=== PATIENT | male | born 1975 | race Caucasian/White ===

== ENCOUNTER 2022-12-19 13:24 | Emergency (ER) | payer MEDICAID ==
[~2022-12-19] VITALS: Ht 182.9 cm; Wt 125.0 kg
[2022-12-19 13:58] LABS: ALANINE AMINOTRANSFERASE 43 U/L (12-78); ALBUMIN 4.3 G/DL (3.4-5.0); ALKALINE PHOSPHATASE 63 IU/L (46-116); ANION GAP 16 (8-16); ASPARTATE AMINO TRANSFERASE 14 U/L (10-37); BILIRUBIN,TOTAL 1.2 MG/DL (0.1-1.0); BLOOD UREA NITROGEN 20 MG/DL (7-18); CALCIUM 10.5 MG/DL (8.5-10.1); CHLORIDE 84 MMOL/L (99-107); CREATININE 1.33 MG/DL (0.60-1.10); GLUCOSE 407 MG/DL (70-104); POTASSIUM 3.8 MMOL/L (3.5-5.1); SODIUM 126 MMOL/L (135-145); TOTAL CARBON DIOXIDE 25.8 MMOL/L (24-32); TOTAL PROTEIN 8.4 G/DL (6.4-8.2); eGFR 57 ML/MIN
[2022-12-19 14:07] LABS: MAGNESIUM 1.8 MG/DL (1.5-2.4)
[2022-12-19] MEDS ORDERED: diphenhydrAMINE 50 mg/ml inj IV ONE (15:15)
[2022-12-19] MEDS ORDERED: metoclopramide 5 mg/ml inj IV ONE (15:15)
[2022-12-19] MEDS ORDERED: normal saline 1000ML IV soln IV ONE (15:15)
[2022-12-19] MEDS ORDERED: chlorproMAZINE 25mg tablet PO STA (17:50)
[2022-12-19] MEDS ORDERED: METO-292 PO (18:06)
[2022-12-19 18:27] VITALS: BP 136/87
== END 2022-12-19 18:33 | disposition home or self-care (01) ==
LOC: ER 13:24
DX: E11.65 Type 2 diabetes mellitus with hyperglycemia (principal); E86.0 Dehydration; R11.2 Nausea with vomiting, unspecified; Z86.718 Personal history of other venous thrombosis and embolism; F12.90 Cannabis use, unspecified, uncomplicated; Z79.899 Other long term (current) drug therapy
CPT/HCPCS: 36415; 71045; 80053; 82948; 83735; 83880; 84484; 93005; 96361; 96374; 96375; 99285; J1200; J2765; J7030

== ENCOUNTER 2023-01-22 20:09 | Inpatient (IN) | payer MEDICAID, OTHER ==
[~2023-01-22] VITALS: Ht 182.9 cm; Wt 110.0 kg
[~2023-01-22 20:09] MED LIST: METO-292 PO
[2023-01-22] MEDS ORDERED: ondansetron/PF 4mg/2ml inj IV ONE (20:45)
[2023-01-22] MEDS ORDERED: normal saline 1000ML IV soln IV ONE (20:45)
[2023-01-22] MEDS ORDERED: famotidine/PF 10 mg/ml inj IV ONE (20:45)
[2023-01-22] MEDS ORDERED: thiamine 100mg/ml 2ml inj. IV ONE (20:50)
[2023-01-22] MEDS ORDERED: folic acid 1mg/0.2ml inj IV ONE (20:50)
[2023-01-22 21:35] LABS: BASOPHILS % (AUTO) 0.4 % (0-1); EOSINOPHILS % (AUTO) 0.2 % (0-6); HEMATOCRIT 42.1 % (42.0-52.0); HEMOGLOBIN 14.3 g/dl (14.0-17.9); LYMPHOCYTES # (AUTO) 1.8 X10'3 (1.1-4.8); LYMPHOCYTES % (AUTO) 15.2 % (21-51); MEAN CORPUSCULAR HEMOGLOBIN 30.2 PG (27.0-31.0); MEAN CORPUSCULAR HGB CONC 33.9 g/dL (33.0-36.5); MEAN CORPUSCULAR VOLUME 89.1 FL (78-98); MEAN PLATELET VOLUME 7.9 FL (7.4-10.4); MONOCYTES # (AUTO) 0.5 X10'3 (0-0.9); MONOCYTES % (AUTO) 4.2 % (2-12); NEUTROPHILS # (AUTO) 9.3 X10'3 (1.8-7.7); PLATELET COUNT 345 X10'3 (140-440); RED BLOOD COUNT 4.72 X10'6 (4.70-6.10); RED CELL DISTRIBUTION WIDTH 13.6 % (11.5-14.5); WHITE BLOOD COUNT 11.7 X10'3 (4.5-11.0)
[2023-01-22 21:47] LABS: ALANINE AMINOTRANSFERASE 53 U/L (12-78); ALBUMIN 3.8 G/DL (3.4-5.0); ALBUMIN/GLOBULIN RATIO 1.2 (1.1-1.5); ALKALINE PHOSPHATASE 65 IU/L (46-116); ANION GAP 15 (8-16); ASPARTATE AMINO TRANSFERASE 19 U/L (10-37); BILIRUBIN,TOTAL 0.3 MG/DL (0.1-1.0); BLOOD UREA NITROGEN 6 MG/DL (7-18); BUN/CREATININE RATIO 5.8 (5.4-32.0); CALCIUM 8.6 MG/DL (8.5-10.1); CHLORIDE 100 MMOL/L (99-107); CREATININE 1.03 MG/DL (0.60-1.10); ETHANOL 0.242 GM/DL (0.0-0.010); POTASSIUM 3.5 MMOL/L (3.5-5.1); SODIUM 135 MMOL/L (135-145); TOTAL CARBON DIOXIDE 20.4 MMOL/L (24-32); TOTAL PROTEIN 6.9 G/DL (6.4-8.2); eGFR 77 ML/MIN
[2023-01-22 21:49] LABS: GLUCOSE 475 MG/DL (70-104)
[2023-01-22] MEDS ORDERED: LORazepam 2 mg/ml vial IV ONE (21:55)
[2023-01-22 22:45] LABS: CLARITY,URINE CLEAR (Clear); COLOR,URINE STRAW (Yellow); GLUCOSE, URINE >=1000 mg/dl (Neg); KETONES,URINE 15 mg/dl (Neg); LEUKOCYTE ESTERASE ,URINE NEGATIVE (Neg); NITRITES, URINE NEGATIVE (Neg); OCCULT BLOOD,URINE NEGATIVE (Neg); PROTEIN,URINE NEGATIVE (Neg); UROBILINOGEN,URINE 0.2 E.U/dL (0.2-1.0)
[2023-01-22 22:46] LABS: UA COLLECTION TYPE CLN CATCH MIDSTREAM
[2023-01-22 22:51] LABS: BACTERIA,URINE NONE SEEN /HPF (Neg); MUCUS STRANDS NONE SEEN /LPF (Neg); RBC,URINE 0-2 /HPF (0-2); SQUAMOUS EPITHELIAL CELL,UR NONE SEEN /LPF (FEW); URINE AMPHETAMINE SCREEN NEGATIVE (Neg); URINE BARBITUATE SCREEN NEGATIVE (Neg); URINE BENZODIAZEPINES SCREEN NEGATIVE (Neg); URINE CANNABINOID SCREEN NEGATIVE (Neg); URINE COCAINE SCREEN NEGATIVE (Neg); URINE METHADONE SCREEN NEGATIVE (Neg); URINE OPIATE SCREEN NEGATIVE (Neg); URINE PHENCYCLIDINE SCREEN NEGATIVE (Neg); WBC,URINE 0-4 /HPF (0-4)
--- NOTE | 2023-01-22 23:43 | NUR ---
CHANGED HIS LINENS/NEW SCRUBS ON THE PT. HIS BED AND THE FLOOR AND THE WALL ARE BEING CLEANED. HE IS SITTING IN A CHAIR OUTSIDE HIS DOOR WAITING. HE IS DOING OK, JUST TIRED.
[2023-01-22] MEDS ORDERED: insulin regular, human 10 units/0.1 ml syringe SQ ONE (23:45)
--- NOTE | 2023-01-23 02:00 | NUR ---
HE IS FEELING BETTER, RESTING.
--- NOTE | 2023-01-23 04:19 | NUR ---
PATIENT IN BED EYES CLOSED RR EVEN UN LABORED NO OBSERVABLE S/S OF ACUTE STRESS AT THIS TIME
[2023-01-23] MEDS ORDERED: APIX5TAB5 PO (04:44)
--- NOTE | 2023-01-23 05:12 | NUR ---
PATIENT SUPPLIED NEW SCRUBS IV DC'D NEW BEDDING AND ICE WATER PATIENT IS EASY TO RE-DIRECT IS IN NO OBSERVABLE ACUTE STRESS AT THIS TIME
[2023-01-23] MEDS: apixaban 5mg tablet PO SCH ×2 (07:32→19:37)
--- NOTE | 2023-01-23 09:46 | NUR ---
PT APPEARS TO BE SLEEPING IN ROOM AT THIS TIME. PT HAS NO NEEDS AT THIS TIME, WILL CONTINUE WITH PLAN OF CARE.
--- NOTE | 2023-01-23 11:14 | NUR ---
AT BEDSIDE WITH PATIENT.
--- NOTE | 2023-01-23 12:29 | NUR ---
PT IN ROOM QUIETLY EATING LUNCH. PT HAS NO NEEDS AT THIS TIME. WILL CONTINUE WITH PLAN OF CARE.
--- NOTE | 2023-01-23 12:58 | NUR ---
MENTAL HEALTH PERSONNEL AT BEDSIDE WITH PATIENT.
--- NOTE | 2023-01-23 14:41 | NUR ---
PT RESTING IN ROOM QUIETLY. PT HAS NO NEEDS AT THIS TIME, WILL CONTINUE WITH PLAN ON CARE.
--- NOTE | 2023-01-23 17:46 | NUR ---
PT APPEARS TO BE SLEEPING IN ROOM. PTS RESPIRATIONS EVEN AND UNLABORED. PT HAS NO NEEDS AT THIS TIME. WILL CONTINUE WITH PLAN OF CARE.
--- NOTE | 2023-01-23 17:58 | NUR ---
DINNER MEAL TRAY GIVEN.
--- NOTE | 2023-01-23 18:48 | NUR ---
PT RETURNING TO ROOM FROM THE BATHROOM. PT IS SITTING ON THE BED QUIETLY. RR EQUAL AND UNLABORED. PT HAS NO NEEDS AT THIS TIME.
--- NOTE | 2023-01-23 19:40 | NUR ---
AT BEDSIDE VISITING
--- NOTE | 2023-01-23 20:12 | NUR ---
PT GIVEN [facility] SCRUBS UPON REQUEST WHEN INFORMED HE IS NOT ABLE TO WEAR THE STREET CLOTHES THAT HIS BROUGHT IN.
--- NOTE | 2023-01-23 23:54 | NUR ---
PT LAYING ON THE GURNEY IN ER BED 13. PT IS AWAKE BUT RESTING. THE PT OCCASIONALY ASKS WHEN HE WILL BE ABLE TO GO HOME BUT VERBALIZES UNDERSTANDING THAT HE IS NOT ABLE TO GO HOME UNTIL HIS 5150 IS LIFTED. PT STATES HE HAS NO NEEDS AT THIS TIME.
--- NOTE | 2023-01-24 02:32 | NUR ---
PT RESTING IN BED. PT APPEARS TO BE ASLEEP. NO DISTRESS OBSERVED AT THIS TIME. RR ARE EQUAL AND UNLABORED.
--- NOTE | 2023-01-24 03:50 | NUR ---
PT AWAKE AND PACING ABOUT HIS ROOM. PER PT THERE ARE NO NEEDS AT THIS TIME.
--- NOTE | 2023-01-24 05:47 | NUR ---
PT QUIETLY RESTING IN ROOM ON THE GURNEY. PT STATES NO NEEDS AT THIS TIME.
--- NOTE | 2023-01-24 07:42 | NUR ---
Phone and hospice nurse practitioner sent to safe with registration. Toiletries, deodorant and socks sent to locked overflow closet.
--- NOTE | 2023-01-24 07:55 | NUR ---
RN gave nurse report to RN in overflow. Pt transferred to overflow bed 22.
--- NOTE | 2023-01-24 08:05 | NUR ---
Patient ambulated to room 22 from main ER, accompanied by RACHEL Howe. After speaking to this nurse, he laid down.
[2023-01-24] MEDS: apixaban 5mg tablet PO SCH ×2 (08:06→21:01)
--- NOTE | 2023-01-24 11:08 | NUR ---
Patient has been accepted to [facility].
--- NOTE | 2023-01-24 11:34 | NUR ---
Patient on phone call with his parents.
--- NOTE | 2023-01-24 11:38 | NUR ---
Patient being transferred to [facility], accompanied by security.
[2023-01-24] MEDS ORDERED: MESSAGE TO PHARMACY PO ONE (12:05)
[2023-01-24] MEDS ORDERED: loperamide 2mg capsule PO PRN (12:05)
[2023-01-24] MEDS ORDERED: glucagon, human recombinant 1mg kit SUBCUT PRN (12:05)
[2023-01-24] MEDS ORDERED: acetaminophen 325mg tablet PO PRN ×2 (12:05)
[2023-01-24] MEDS ORDERED: magnesium hydroxide 30ml (MOM) UD suspension PO PRN (12:05)
[2023-01-24] MEDS ORDERED: DEXTROSE 15 GM of carb/4 tabs (each vial/BOTTLE has 4 tablets) PO PRN ×2 (12:05)
[2023-01-24] MEDS ORDERED: mag hydrox/Alum hydrox/simeth 30ml oral suspension PO PRN (12:05)
[2023-01-24 12:10] VITALS: BP 146/110
--- NOTE | 2023-01-24 13:12 | NUR ---
Admit note: [facility] for DTS. Pt made statements that he was going to "End it all". Pt expressed that he has been having a difficult month between thinking about past childhood trauma and losing his job. His parents and feel his stability and mental health is worsening and not safe at this time. Pt has history of DVT and DM II.
[2023-01-24] MEDS: insulin Lispro (HumaLOG) vial - multi-dose SQ SCH ×2 (17:56→18:03)
[2023-01-24 19:00] VITALS: BP 146/90
[2023-01-24] MEDS: insulin glargine (Lantus) pen - multi-dose SQ SCH (21:00)
--- NOTE | 2023-01-25 04:34 | NUR ---
Admit note: [facility] for DTS. Pt made statements that he was going to "End it all". Pt expressed that he has been having a difficult month between thinking about past childhood trauma and losing his job. His parents and feel his stability and mental health is worsening and not safe at this time. Pt has history of DVT and DM II. Response: Received pt. in room at change of shift. Observed walking the unit. Pt. is pleasant and cooperative. States speaking to and daughter tiffanieDavid ALVARADO obtained BG of 242. Lantus was not given d/t no AM BG . Pt. compliant with bedtime medication. Denies SI/HI, AH/VH. States " I never did hurt anyone". Remained in room for the night and slept through the night. Observed and appears to be sleeping at this time.
--- NOTE | 2023-01-25 04:45 | NUR ---
NURSING PROGRESS NOTE: Problem: Pt admitted to [facility] today on a 5150 for DTS. Pt made statements that he was going to "End it all". Pt expressed that he has been having a difficult month between thinking about past childhood trauma and losing his job. His parents and feel his stability and mental health is worsening and not safe at this time. Pt has history of DVT and DM II. Response: Received pt. in room at change of shift. Observed walking the unit. Pt. is pleasant and cooperative. States speaking to and daughter KennRN obtained BG of 242. Lantus was not given d/t no AM BG . Pt. compliant with bedtime medication. Denies SI/HI, AH/VH. States " I never did hurt anyone". Remained in room for the night and slept through the night. Observed and appears to be sleeping at this time.
[2023-01-25] MEDS: apixaban 5mg tablet PO SCH ×2 (07:36→20:20)
[2023-01-25 08:00] VITALS: BP 135/90
[2023-01-25] MEDS: insulin Lispro (HumaLOG) vial - multi-dose SQ SCH ×3 (09:10→17:56)
[2023-01-25 10:34] LABS: CHOL/HDL RATIO 4.4 (0.00-4.99); CHOLESTEROL 191 MG/DL (0-200); HDL CHOLESTEROL 43 MG/DL (35-60); HEMOGLOBIN A1C 10.7 % (4.5-6.2); LDL CHOLESTEROL 112 MG/DL (50-100); TRIGLYCERIDES 254 MG/DL (20-135)
--- NOTE | 2023-01-25 16:09 | NUR ---
NURSING PROGRESS NOTE: Ry Martines 323A Problem: Pt admitted to [facility] today on a 5150 for DTS. Pt made statements that he was going to "End it all". Pt expressed that he has been having a difficult month between thinking about past childhood trauma and losing his job. His parents and feel his stability and mental health is worsening and not safe at this time. Pt has history of DVT and DM II. Interventions: Introduced self and established rapport, maintained a safe and supportive environment, ensured contract for safety, provided clear and simple instructions, educated pt. about hyper/hypo glycemia, insulin administrations and S/S of Hypoglycemia. Insulin was well tolerated. Pt need diabetic snacks to maintain a healthy glucose level. Maintained Q 15min safety checks per floor protocol. Response: Received pt. in room at change of shift. Observed walking the unit going into the community room. Pt is pleasant and cooperative. pts came to visit earlier this morning and pt states was a good visit. BG of 279, 262 at lunch time. Pt was advanced to Level 4. Lunch time carbs were not covered because pt was on therapy and was eating pass 2 pm. Covered only for BG of 262 with 9 units of insulin Denies SI/HI, AH/VH. Pt happy he will be DC tomorrow.
--- NOTE | 2023-01-25 18:00 | NUR ---
Pt received 20 units of insulin administered by Adi Lofton. I expressed my concerns because I normally DO NOT administer insulin for Dinner, NOC nurses administer PM Insulin and Lantus. Adi Lofton insisted that this is what protocol dictates here in [facility]. So, he administered the 20 units of Humalog.
[2023-01-25] MEDS: atorvastatin 20mg tablet PO SCH (18:09)
[2023-01-25 19:12] VITALS: BP 128/87
[2023-01-25] MEDS: insulin glargine (Lantus) pen - multi-dose SQ SCH (21:18)
--- NOTE | 2023-01-25 23:38 | NUR ---
NURSING PROGRESS NOTE: Ry Martines 323A Problem: Pt admitted to [facility] today on a 5150 for DTS. Pt made statements that he was going to "End it all". Pt expressed that he has been having a difficult month between thinking about past childhood trauma and losing his job. His parents and feel his stability and mental health is worsening and not safe at this time. Pt has history of DVT and DM II. Interventions: Introduced self and established rapport, maintained a safe and supportive environment, ensured contract for safety, provided clear and simple instructions, educated pt. about hyper/hypo glycemia, insulin administrations and S/S of Hypoglycemia. Insulin was well tolerated. Pt need diabetic snacks to maintain a healthy glucose level. Maintained Q 15min safety checks per floor protocol. Response: Received pt. in room at change of shift. Pt calm and polite during assessment. Denies MH symptoms at this time. Pt participated in snacks and took HS medications. Pt given 12 units of lantis this NOC shift. Pt is anxious about discharge.
[2023-01-26] MEDS: apixaban 5mg tablet PO SCH (07:46)
[2023-01-26] MEDS: atorvastatin 20mg tablet PO SCH (07:46)
[2023-01-26 08:00] VITALS: BP 130/86
--- NOTE | 2023-01-26 08:28 | NUR ---
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 Pt not appropriate for DM ed at this time; ed deferred. DAVID d/w RN regarding routine MVI supplementation for etoh if MD agreeable. Addendum: 01/26/23 at [address] Amended: Links added.
[2023-01-26 08:57] LABS: BASOPHILS # (AUTO) 0.1 X10'3 (0-0.2); BASOPHILS % (AUTO) 0.7 % (0-1); EOSINOPHILS # (AUTO) 0.3 X10'3 (0-0.9); EOSINOPHILS % (AUTO) 3.3 % (0-6); HEMATOCRIT 45.9 % (42.0-52.0); HEMOGLOBIN 15.8 g/dl (14.0-17.9); LYMPHOCYTES % (AUTO) 24.6 % (21-51); MEAN CORPUSCULAR HEMOGLOBIN 30.9 PG (27.0-31.0); MEAN CORPUSCULAR HGB CONC 34.5 g/dL (33.0-36.5); MEAN CORPUSCULAR VOLUME 89.5 FL (78-98); MEAN PLATELET VOLUME 8.1 FL (7.4-10.4); MONOCYTES # (AUTO) 0.6 X10'3 (0-0.9); MONOCYTES % (AUTO) 7.4 % (2-12); NEUTROPHILS # (AUTO) 5.3 X10'3 (1.8-7.7); PLATELET COUNT 375 X10'3 (140-440); RED BLOOD COUNT 5.13 X10'6 (4.70-6.10); RED CELL DISTRIBUTION WIDTH 13.4 % (11.5-14.5); WHITE BLOOD COUNT 8.2 X10'3 (4.5-11.0)
[2023-01-26] MEDS: insulin Lispro (HumaLOG) vial - multi-dose SQ SCH (08:57)
[2023-01-26] MEDS ORDERED: ATOR20TA66 PO (11:15)
--- NOTE | 2023-01-26 14:08 | NUR ---
Discharge Note on 01/26/23 at 1408 Received discharge orders from Rajendra Belle PA-C, at approximately 1230. Reviewed all discharge orders with the patient and he signed the appropriate paperwork. HEBER Oneill, reviewed the Patient Belongings with the patient in his room, then gave me the clear plastic signature sheet to take down to the Beauty Culturist Apprentice so that the patient could retrieve his items from the Beauty Culturist Apprentice Registration Staff. Patient called his in-laws, at approximately 1330 and when Security called [facility] to report his family had arrived for pickup, the patient ambulated down with this Beef Pusher to the Front Lobby and Security called the Floor Director to bring out the patients belongings which were a cell phone and a cell phone regional intermodal truck driver. Patient signed the appropriate paperwork for the Registration Staff and was released to his family and discharged at 1408.
== END 2023-01-26 14:45 | disposition home or self-care (01) | DRG 882 ==
LOC: ER 20:10 → ED HOLD 01-24 10:40 → ADULT MH 01-24 11:40
PROVIDERS: ADMIT Psychiatry & Neurology Psychiatry; ATTEND Psychiatry & Neurology Psychiatry
DX: F43.25 Adjustment disorder with mixed disturbance of emotions and conduct (principal); E11.9 Type 2 diabetes mellitus without complications; F10.929 Alcohol use, unspecified with intoxication, unspecified; Z20.822 Contact with and (suspected) exposure to COVID-19; R32 Unspecified urinary incontinence; R48.0 Dyslexia and alexia; E78.00 Pure hypercholesterolemia, unspecified; Z79.01 Long term (current) use of anticoagulants; Z79.4 Long term (current) use of insulin; Z80.3 Family history of malignant neoplasm of breast; Z80.42 Family history of malignant neoplasm of prostate; Z83.3 Family history of diabetes mellitus; Z86.718 Personal history of other venous thrombosis and embolism; Z91.410 Personal history of adult physical and sexual abuse; Z56.0 Unemployment, unspecified; X83.8XXA Intentional self-harm by other specified means, initial encounter
CPT/HCPCS: 36415; 80053; 80061; 80305; 80320; 81001; 82948; 83036; 85025; 87081; 87811; 99285; A4615; J1815; J2060; J2405; J3411; J3490; J7030